=== PATIENT | male | born 1965 | race African-American/Black ===

== ENCOUNTER 2018-09-08 05:30 | Day surgery (SDC) | payer MEDICAID ==
[~2018-09-08] VITALS: Ht 177.8 cm; Wt 83.9 kg
[2018-09-08] MEDS ORDERED: LACTATED RINGERS 1,000 ML IV SCH ×2 (06:30→08:00)
[2018-09-08] MEDS ORDERED: LISI10TA5 PO (06:49)
[2018-09-08] MEDS ORDERED: SIMV10TA6 PO (06:49)
[2018-09-08] MEDS ORDERED: ALBU90AE IH (06:49)
[2018-09-08] MEDS ORDERED: ASPI-1159 PO (06:49)
[2018-09-08] MEDS ORDERED: BUPIVACAINE/EPINEPH/PF 0.25%/0.0005 10ML ONE (06:57)
[2018-09-08] MEDS ORDERED: EPINEPHRINE 1:1000 1 MG/ML AMP ONE (07:06)
[2018-09-08] MEDS ORDERED: MORPHINE SULFATE/PF 1MG/ML 10ML AMP ONE (07:20)
[2018-09-08] MEDS ORDERED: GLYCOPYRROLATE 0.2 MG/ML 2ML VIAL ONE (07:41)
[2018-09-08] MEDS ORDERED: MIDAZOLAM HCL 2 MG/2 ML VIAL ONE (07:41)
[2018-09-08] MEDS ORDERED: PROPOFOL 200MG/20ML VIAL IV ONE (07:41)
[2018-09-08] MEDS ORDERED: FENTANYL CITRATE/PF 50MCG/ML 2ML VIAL ONE (07:41)
[2018-09-08] MEDS ORDERED: METOCLOPRAMIDE HCL 10MG/2ML VIAL ONE (07:42)
[2018-09-08] MEDS ORDERED: LIDOCAINE HCL 1% 20ML VIAL (Pyxis) INJ ONE (07:42)
[2018-09-08] MEDS ORDERED: SUCCINYLCHOLINE CHLORIDE 200MG/10ML IV ONE (07:42)
[2018-09-08] MEDS ORDERED: ONDANSETRON HCL 4MG/2ML INJ ONE (07:42)
[2018-09-08] MEDS ORDERED: HYDROMORPHONE HCL/PF 2MG/ML CPJ IV PRN (09:30)
[2018-09-08] MEDS ORDERED: MEPERIDINE HCL/PF 25MG/ML CPJ IV PRN (09:30)
[2018-09-08] MEDS ORDERED: ONDANSETRON HCL 4MG/2ML INJ IV PRN (09:30)
[2018-09-08] MEDS ORDERED: MORPHINE SULFATE 4 MG/ML CPJ (NOT FOR IM USE) IV PRN (09:30)
[2018-09-08] MEDS ORDERED: SODIUM CHLORIDE 0.9% 1,000 ML IV ONE (09:38)
== END 2018-09-08 11:50 | disposition home or self-care (01) ==
LOC: OR 05:30
PROVIDERS: ATTEND Orthopaedic Surgery
DX: M23.222 Derangement of posterior horn of medial meniscus due to old tear or injury, left knee (principal); M22.42 Chondromalacia patellae, left knee; M65.862 Other synovitis and tenosynovitis, left lower leg; F32.9 Major depressive disorder, single episode, unspecified; J45.909 Unspecified asthma, uncomplicated; Z79.82 Long term (current) use of aspirin; Z79.899 Other long term (current) drug therapy; I10 Essential (primary) hypertension
CPT/HCPCS: 29881; 88304; 88311; 93005; 97162; 97535; J0171; J0330; J2250; J2274; J2405; J2704; J2765; J3010; J3490

== ENCOUNTER 2022-07-31 13:35 | Emergency (ER) | payer MEDICAID ==
[~2022-07-31] VITALS: Ht 177.8 cm; Wt 82.0 kg
[~2022-07-31 13:35] MED LIST: ALBU90AE IH; ASPI-1497 PO; LISI10TA26 PO; SIMV10TA97 PO
[2022-07-31 13:50] VITALS: BP 139/99
[2022-07-31] MEDS ORDERED: DIPHENHYDRAMINE 50MG CAPSULE PO ONE (17:45)
[2022-07-31] MEDS ORDERED: PREDNISONE 20MG TABLET PO ONE (17:45)
[2022-07-31] MEDS ORDERED: FAMOTIDINE 20MG TABLET PO ONE (17:45)
[2022-07-31] MEDS ORDERED: P50 MT (18:18)
[2022-07-31] MEDS ORDERED: DIPH25CA83 MT (18:18)
[2022-07-31] MEDS ORDERED: FAMO-135 MT (18:18)
== END 2022-07-31 18:38 | disposition home or self-care (01) ==
LOC: ER 14:00
DX: T78.40XA Allergy, unspecified, initial encounter (principal); X58.XXXA Exposure to other specified factors, initial encounter; J45.909 Unspecified asthma, uncomplicated; I10 Essential (primary) hypertension; Z98.890 Other specified postprocedural states
CPT/HCPCS: 99284; J7512; Q0163; Z7610

== ENCOUNTER 2022-08-12 22:51 | Emergency (ER) | payer MEDICAID ==
[~2022-08-12] VITALS: Ht 177.8 cm; Wt 84.0 kg
[~2022-08-12 22:51] MED LIST changes: +DIPH25CA83 MT; +FAMO-135 MT; +P50 MT
[2022-08-13 00:02] VITALS: BP 148/86
[2022-08-13] MEDS ORDERED: HYDR453.3 TP (01:17)
[2022-08-13] MEDS ORDERED: CEPH500C2 MT (01:17)
== END 2022-08-13 01:44 | disposition home or self-care (01) ==
LOC: ER 22:51
DX: L23.9 Allergic contact dermatitis, unspecified cause (principal); J45.909 Unspecified asthma, uncomplicated; I10 Essential (primary) hypertension; Z79.899 Other long term (current) drug therapy
CPT/HCPCS: 99283

== ENCOUNTER 2023-10-23 22:32 | Emergency (ER) | payer MEDICAID, OTHER ==
[~2023-10-23] VITALS: Ht 177.8 cm; Wt 84.0 kg
[~2023-10-23 22:32] MED LIST changes: +CEPH500C2 MT; +HYDR453.3 TP
[2023-10-23 22:38] VITALS: TEMP 98.6; O2SAT 97
[2023-10-23 23:15] VITALS: BP 130/89; PULSE 86; RESP 16
[2023-10-23] MEDS: KETOROLAC 30MG/ML VIAL IM NR (23:15)
[2023-10-23] MEDS ORDERED: KETOROLAC 60MG/2ML VIAL IM ONE (23:15)
[2023-10-24] MEDS: METHOCARBAMOL 500MG TABLET PO ONE (03:45)
[2023-10-24] MEDS ORDERED: IBUP-2029 MT (04:17)
[2023-10-24] MEDS ORDERED: LIDO700A15 TP (04:17)
== END 2023-10-24 04:58 | disposition home or self-care (01) ==
LOC: ER 22:32
DX: S39.012A Strain of muscle, fascia and tendon of lower back, initial encounter (principal); J45.909 Unspecified asthma, uncomplicated; I10 Essential (primary) hypertension; Z79.899 Other long term (current) drug therapy; V49.49XA Driver injured in collision with other motor vehicles in traffic accident, initial encounter; Y93.89 Activity, other specified; Y92.89 Other specified places as the place of occurrence of the external cause; Y99.8 Other external cause status
CPT/HCPCS: 99284; 71045; 72100; 96372; J1885